=== PATIENT | female | born 1950 | race Caucasian/White ===

== ENCOUNTER 2024-01-17 11:50 | Inpatient (IN) | payer MEDICARE, OTHER, SELFPAY ==
[2024-01-17] VITALS (7 sets, daily range): BP systolic 152–174; BP diastolic 59–78; PULSE 69–81; RESP 15–22; TEMP 35.5–37; O2SAT 95–97; BMI 28.4; BMI 29.4
--- NOTE | ~2024-01-17 | CT_ITS ---
EXAMINATION: CT HEAD WITHOUT CONTRAST CLINICAL INFORMATION: Confusion COMPARISON: Previous head CT most recent July 2018 TECHNIQUE: Contiguous axial imaging was performed from the skull base to vertex without intravenous administration of contrast. This CT examination was performed using dose optimization techniques as appropriate, variously including the following: *Automated exposure control *Adjustment of mA and/or kV according to patient size (this includes techniques or standardized protocols for targeted exams where dose is matched to indication/reason for exam; i.e. extremities or head) *Use of iterative reconstruction technique DLP: 642 mGy-cm FINDINGS: There is no evidence for an extra-axial collection. There is no evidence for intra-or extra-axial hemorrhage. The ventricles and extra-axial CSF spaces are appropriate. Bradshaw-white matter differentiation is normal. No mass, mass effect or infarct is seen. Review of bone windows is normal. No skull fracture. Visualized paranasal sinuses, mastoid air cells and middle ears are clear. 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 CT/CT head/brain wo IV con IMPRESSION: No acute intracranial findings.
--- NOTE | 2024-01-17 11:57 | ED_ITS ---
HPI - Altered Mental Status General Chief Complaint: Neuro Symptoms/Deficit Stated Complaint: Confusion Time Seen by Provider: 01/17/24 12:13 Source: patient and family Mode of arrival: ambulatory Limitations: no limitations History of Present Illness HPI narrative: 73 yo female with history of HTN, HLD, neuropathy on high dose gabapentin and baclofen, anxiety on klonopin who presents to the ER for evaluation of worsening confusion that started yesterday at noon. History obtained from patient and due to her confusion. They just drove to [place], [place] and back for a wedding, returning home on the evening of 01/14. Patient was at her baseline mental status then. She slept until noon on 01/15 which her thought was due to all of the traveling and driving. She was confused and was talking nonsense intermittently yesterday. She went to bed early at 7pm last night and woke up today at 9am even more confused. She tried to put her shirt on as pants. She was looking at toothpaste on her finger and kept repeating reindeer. She states she feels crazy and is tearful upon arrival. reports history of serotonin syndrome in the past and one of her medications was adjusted but not sure which one. No new meds for her. She has a history of similar behavior with oxycodone. She manages all of her own medications and he reports her med box was inconsistent when he looked at it today; some days had 10 pills, some with 4 or 5. No fevers at home. No chest pain, SOB, N/V/D. She had decreased PO intake during the drives but otherwise has been urinating normally without any pain. MD complaint: confusion Onset (ago): day(s) Timing confirmed by: family member Severity: severe Consistency of symptoms: getting Worse Context: history of similar presentation Related Data Home Medications ?Medication ?Instructions ?Recorded ?Confirmed acetaminophen 500 mg tablet 1,000 mg PO Q6H PRN Pain 01/17/24 01/17/24 albuterol sulfate 90 mcg/actuation 2 puff inhalation Q4H PRN 01/17/24 01/17/24 aerosol inhaler Shortness Of Breath Or Wheezing baclofen 5 mg tablet 10 mg PO BEDTIME 01/17/24 01/17/24 budesonide-formoterol HFA 160 2 puff inhalation BID PRN 01/17/24 01/17/24 mcg-4.5 mcg/actuation aerosol Shortness Of Breath Or Wheezing inhaler (Symbicort) clonazepam 1 mg tablet 1 mg PO TID PRN anxiety 01/17/24 01/17/24 cyanocobalamin (vitamin B-12) 1,000 mcg IM QMONTH 01/17/24 01/17/24 1,000 mcg/mL injection solution denosumab 60 mg/mL subcutaneous 60 mg subcut [id number] 01/17/24 01/17/24 syringe (Prolia) desvenlafaxine succinate 50 mg 50 mg PO DAILY 01/17/24 01/17/24 tablet,extended release 24 hr dextromethorphan HBr 15 mg tablet 30 mg PO Q8H PRN Cough 01/17/24 01/17/24 gabapentin 800 mg tablet 800 mg PO TID 01/17/24 01/17/24 lisinopril 10 mg tablet 10 mg PO DAILY 01/17/24 01/17/24 [id number] 8 mg-folic 400 1 tab PO DAILY 01/17/24 01/17/24 mcg-K 50 mcg-lutein 300 mcg tablet (Centrum Silver Women) omeprazole 20 mg capsule,delayed 20 mg PO BID 01/17/24 01/17/24 release propranolol 60 mg capsule,24 60 mg PO DAILY 01/17/24 01/17/24 hr,extended release riboflavin (vitamin B2) 400 mg 400 mg PO DAILY 01/17/24 01/17/24 tablet rosuvastatin 5 mg tablet 5 mg PO DAILY 01/17/24 01/17/24 verapamil 240 mg tablet,extended 240 mg PO DAILY 01/17/24 01/17/24 release Allergies Allergy/AdvReac Type Severity Reaction Status Date / Time aripiprazole [From ABILIFY] Allergy Unknown SHAKE Verified 01/17/24 12:02 atorvastatin [ATORVASTATIN] Allergy Unknown UNKNOWN-PT Verified 01/17/24 12:02 ONLY [employer]LE [employer],NO OTHER STATIN divalproex sodium Allergy Unknown DELIRIUM Verified 01/17/24 12:02 [From DEPAKOTE] morphine [MORPHINE] Allergy Unknown ITCHING Verified 01/17/24 12:02 oxycodone [OXYCODONE] Allergy Unknown DELIRIUM Verified 01/17/24 12:02 pregabalin [From LYRICA] Allergy Unknown SWELLING Verified 01/17/24 12:02 quetiapine [From SEROQUEL] Allergy Unknown DELIRIUM Verified 01/17/24 12:02 lithium [LITHIUM] AdvReac 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 Review of Systems 2 Review of Systems: Yes all other systems are reviewed and are negative [facility] [place] Past Medical History Medical History (Updated 01/17/24 @ 17:58 by Valentino Cline MD) Neuropathy HLD (hyperlipidemia) HTN (hypertension) Social History Social History Patient Tobacco Use Status: Never used Tobacco Smoked in Last 30 Days: No Use of substances other than those prescribed or required for medical reasons: No Advance Directives: No Advance Directives Information Provided: No Do you have a plan to hurt others: No Plan Nutrition Risks: No Nutritional Risk Physical Exam ED Vital Signs: Vital Signs - 24 hr 01/17/24 11:57 01/17/24 12:14 01/17/24 14:19 Temperature 97.3 F 98.0 F 98.6 F Pulse Rate 69 70 76 Respiratory Rate 18 15 16 Blood Pressure 152/63 H 155/78 H 174/78 H Pulse Oximetry 96 96 97 Oxygen Delivery Method Room Air Room Air Room Air 01/17/24 15:27 Temperature 97.7 F Pulse Rate 80 Respiratory Rate 22 H Blood Pressure 167/59 H Pulse Oximetry 95 Oxygen Delivery Method Room Air BMI result Body Mass Index 28.4 Appearance: Alert. Oriented X2 (person and place). tearful Head: normocephalic, atraumatic. Eyes: Pupils equal, round and reactive to light. ENT: Pharynx normal. No tonsillar swelling or exudate. Neck: Normal inspection. Neck supple. CVS: Normal heart rate and rhythm. Pulses normal. Respiratory: No respiratory distress. Breath sounds normal. Abdomen: Soft and nontender. +BS x4 Skin: Skin warm and dry. Normal skin color. Normal skin turgor. No rashes. Extremities: No lower extremity edema. No joint swelling. Tremor to bilateral hands (baseline but slightly worse) +asterixis. no clonus Neuro/psych: Oriented X 2. No motor deficit. No sensory deficit. CN II-XII intact. Normal speech, confused. able to follow commands and answer most simple questions. poor memory Course Course Course Narrative: This is an RME performed by Kathy Heller CNP: Additional HPI, ROS, PE not included below will be deferred to primary provider. Patient is a 73-year-old female who presents to the emergency department for evaluation of confusion. recently has traveled 6,000miles by car over past 10 days, got home 2 days. yesterday upon awakening was confused, staring at her fingers saying reindeer reindeer reindeer, and today on the toilet for 45 minutes putting on her pants. Patient reports pain in her left foot, states this is chronic. Denies CP, SOB, sx, recent falls Physical exam: patient having difficulty following commands to perform NIH stroke scale, LSCTA, no resp distress, ambulates with steady gait Reevaluation(s) Reevaluation #1: Upon re-evaluation patient remains confused. Urinalysis is pending. CT scan metabolic workup so far largely unremarkable aside for some mild hypernatremia. Time: 15:30 Medications Administered Generic Name Dose Route Start Last Admin Trade Name Freq PRN Reason Stop Dose Admin Enoxaparin Sodium 40 mg 01/17/24 18:00 01/17/24 18:06 Enoxaparin Sodium 40 Mg/0.4 Ml Syringe SUBCUT 40 mg Q24H YASIR Administration Ceftriaxone Sodium 1 gm/ 50 mls @ 100 mls/hr 01/17/24 18:00 01/17/24 18:45 Sodium Chloride IV Infused Q24H YASIR Infusion Lactated Ringer's 1,000 mls @ 100 mls/hr 01/17/24 17:00 01/17/24 18:45 Lr IVCONT 100 mls/hr .Q10H YASIR Infusion Propranolol HCl 60 mg 01/17/24 18:00 01/17/24 18:05 Propranolol Hcl La 60 Mg Cap.Sa.24h PO 60 mg DAILY YASIR Administration Discontinued Medications Generic Name Dose Route Start Last Admin Trade Name Freq PRN Reason Stop Dose Admin Sodium Chloride 1,000 mls @ 999 mls/hr 01/17/24 12:45 01/17/24 14:04 Ns IVCONT 01/17/24 13:45 Infused .Q1H1M YASIR Infusion Medical Decision Making Medical Decision Making MDM Narrative: 73 yo female presenting with confusion that started yesterday after returning from a long car trip. reports inconsistencies w/ her med box and concern she may have taken too much of something. she is on high dose gabapentin 800 mg TID and baclofen. She is afebrile, no rigidity or clonus. History of serotonin syndrome in the past that presented w/ severe agitation, fever, rigidity. EKG with normal intervals. CT head and lab workup performed which was largely unremarkable. on re-evaluation patient remains confused. Difficulty articulating anything about the trip where she just went. She is oriented to person and place. reports she is still very far off from her mental status baseline. Most likely etiology is accidental ingestion/polypharmacy. Her urinalysis is negative for infection there is no major metabolic derangement aside from some mild hypernatremia which will not cause her symptoms. Will plan to admit to the hospital for further evaluation and treatment. Patient and updated on plan of care and are in agreement. Differential Diagnosis Differential Diagnoses: The differential diagnosis associated with the presentation includes acute delirium, accidental medication overdose/toxicity, CVA, UTI, serotonin syndrome Admission/Observation Consideration of admission/observation: Escalation of care including admission/observation considered Consult Healthcare Provider Management of the patient was discussed with: Hospitalist Lab Data MDM Lab Attestation statement: I reviewed the patient's lab results. no leukocytosis. mild hyperchloremic hyerpnatremia, mildly elevated BUN 01/17/24 12:40 01/17/24 12:40 Labs: Lab Results 01/17/24 01/17/24 01/17/24 Range/Units 12:40 12:44 12:47 WBC 8.3 (4.8-10.8) X10*3/uL RBC 3.80 L (4.20-5.50) X10*6/uL Hgb 12.4 (12.0-16.0) g/dl Hct 38.1 (37.0-47.0) % MCV 100.3 H (80.0-98.0) fL MCH 32.6 (27.0-33.0) pg MCHC 32.5 (31.0-35.0) g/dl RDW 13.9 (11.0-16.0) % Plt Count 292 (160-400) X10*3/uL MPV 9.6 (9.4-12.3) fL Immature Gran % (Auto) 0.4 (0.0-0.4) % Neut % (Auto) 68.0 (45-73) % Lymph % (Auto) 18.1 L (20-40) % Clinch % (Auto) 11.0 (2-11) % Eos % (Auto) 1.8 (0-4) % Baso % (Auto) 0.7 (0-2) % Lymph # (Auto) 1.5 (1.2-4.9) X10*3/uL Clinch # (Auto) 0.9 (0.1-1.2) X10*3/uL Eos # (Auto) 0.2 (0.0-0.4) X10*3/uL Baso # (Auto) 0.1 (0.0-0.2) X10*3/uL Abs Immat Gran (auto) 0.03 (0.00-0.03) X10*3/uL Absolute Neuts (auto) 5.7 (2.0-8.3) x10*3/uL Absolute Nucleated RBC 0.000 (0.0-0.012) X10*3/uL Nucleated RBC % (auto) 0.0 (0.0-0.2) /100WBC PT 12.0 (11.1-13.3) SEC INR 1.0 (0.9-1.1) VBG pH 7.35 (7.32-7.43) VBG pCO2 50 mmHg VBG pO2 34 mmHg VBG HCO3 28 H (22-26) mmol/L VBG O2 Saturation 52.0 % VBG Base Excess 2.6 mmol/L Sodium 147 H (135-145) mmol/L Potassium 4.3 (3.3-5.1) mmol/L Chloride 109 H (96-108) mmol/L Carbon Dioxide 24 (22-29) mmol/L Anion Gap 18 (12-20) BUN 20 H (9-16) mg/dL Creatinine 1.37 (0.5-1.4) mg/dL Estim Creat Clear Calc 38.9 Estimated GFR 38 Random Glucose 101 (60-115) mg/dL Calcium 10.7 H (8.4-10.2) mg/dL Total Bilirubin 0.4 (0.0-1.0) mg/dL AST 26 (5-31) U/L ALT 24 (0-31) U/L Alkaline Phosphatase 60 (39-117) U/L Ammonia 20 (13-55) umol/L Total Protein 7.4 (6.5-8.0) g/dL Albumin 4.5 (3.5-5.0) g/dL TSH 0.88 (0.32-4.0) uIU/mL Urine Color Urine Appearance Urine pH (5.0-9.0) Ur Specific [place] (1.005-1.025) Urine Protein (Neg-Trace) mg/dL Urine Glucose (UA) (Negative) mg/dL Urine Ketones (Negative) mg/dL Urine Blood (Negative) Urine Nitrite (Negative) Ur Leukocyte Esterase (Negative) Urine RBC (0-2) /HPF Urine WBC (0-5) /HPF Ur Squamous Epith Cells (0-2) /HPF Urine Bacteria (None Seen) Hyaline Casts (0-2) /LPF Salicylates < 5.0 L (15-30) mg/dL Urine Opiates Screen (Not Detect) Ur Buprenorphine Scrn (Not Detect) ng/mL Ur Oxycodone Screen (Not Detect) ng/mL Urine Methadone Screen (Not Detect) ng/mL Urine Fentanyl Screen (Not Detect) Acetaminophen < 3 (<30) mcg/mL Ur Barbiturates Screen (Not Detect) Ur Phencyclidine Scrn (Not Detect) Ur Amphetamines Screen (Not Detect) U Benzodiazepines Scrn (Not Detect) Urine Cocaine Screen (Not Detect) U Marijuana (THC) Screen (Not Detect) 01/17/24 Range/Units 15:28 WBC (4.8-10.8) X10*3/uL RBC (4.20-5.50) X10*6/uL Hgb (12.0-16.0) g/dl Hct (37.0-47.0) % MCV (80.0-98.0) fL MCH (27.0-33.0) pg MCHC (31.0-35.0) g/dl RDW (11.0-16.0) % Plt Count (160-400) X10*3/uL MPV (9.4-12.3) fL Immature Gran % (Auto) (0.0-0.4) % Neut % (Auto) (45-73) % Lymph % (Auto) (20-40) % Clinch % (Auto) (2-11) % Eos % (Auto) (0-4) % Baso % (Auto) (0-2) % Lymph # (Auto) (1.2-4.9) X10*3/uL Clinch # (Auto) (0.1-1.2) X10*3/uL Eos # (Auto) (0.0-0.4) X10*3/uL Baso # (Auto) (0.0-0.2) X10*3/uL Abs Immat Gran (auto) (0.00-0.03) X10*3/uL Absolute Neuts (auto) (2.0-8.3) x10*3/uL Absolute Nucleated RBC (0.0-0.012) X10*3/uL Nucleated RBC % (auto) (0.0-0.2) /100WBC PT (11.1-13.3) SEC INR (0.9-1.1) VBG pH (7.32-7.43) VBG pCO2 mmHg VBG pO2 mmHg VBG HCO3 (22-26) mmol/L VBG O2 Saturation % VBG Base Excess mmol/L Sodium (135-145) mmol/L Potassium (3.3-5.1) mmol/L Chloride (96-108) mmol/L Carbon Dioxide (22-29) mmol/L Anion Gap (12-20) BUN (9-16) mg/dL Creatinine (0.5-1.4) mg/dL Estim Creat Clear Calc Estimated GFR Random Glucose (60-115) mg/dL Calcium (8.4-10.2) mg/dL Total Bilirubin (0.0-1.0) mg/dL AST (5-31) U/L ALT (0-31) U/L Alkaline Phosphatase (39-117) U/L Ammonia (13-55) umol/L Total Protein (6.5-8.0) g/dL Albumin (3.5-5.0) g/dL TSH (0.32-4.0) uIU/mL Urine Color Yellow Urine Appearance Cloudy Urine pH 5.5 (5.0-9.0) Ur Specific [place] 1.015 (1.005-1.025) Urine Protein Negative (Neg-Trace) mg/dL Urine Glucose (UA) Negative (Negative) mg/dL Urine Ketones Negative (Negative) mg/dL Urine Blood Negative (Negative) Urine Nitrite Negative (Negative) Ur Leukocyte Esterase Trace H (Negative) Urine RBC 0-2 (0-2) /HPF Urine WBC 6-10 H (0-5) /HPF Ur Squamous Epith Cells >20 (0-2) /HPF Urine Bacteria 4+ (None Seen) Hyaline Casts 0-2 (0-2) /LPF Salicylates (15-30) mg/dL Urine Opiates Screen Not Detected (Not Detect) Ur Buprenorphine Scrn Not Detected (Not Detect) ng/mL Ur Oxycodone Screen Not Detected (Not Detect) ng/mL Urine Methadone Screen Not Detected (Not Detect) ng/mL Urine Fentanyl Screen Not Detected (Not Detect) Acetaminophen (<30) mcg/mL Ur Barbiturates Screen Not Detected (Not Detect) Ur Phencyclidine Scrn Not Detected (Not Detect) Ur Amphetamines Screen Not Detected (Not Detect) U Benzodiazepines Scrn POSITIVE H (Not Detect) Urine Cocaine Screen Not Detected (Not Detect) U Marijuana (THC) Screen Not Detected (Not Detect) Independent Interpretation I performed an independent interpretation of an: EKG and CT Scan Interpretation: EKG with normal sinus rhythm, normal ID interval, normal QRS, normal QTC, no ST segment elevations depressions, artifact present. CT scan without any acute intracranial edema or bleed. Radiology Impression Discussion of test interpretation with radiology: I have reviewed the radiologist's reading. Radiologist Impression: EXAMINATION: CT HEAD WITHOUT CONTRAST CLINICAL INFORMATION: Confusion COMPARISON: Previous head CT most recent July 2018 TECHNIQUE: Contiguous axial imaging was performed from the skull base to vertex without intravenous administration of contrast. This CT examination was performed using dose optimization techniques as appropriate, variously including the following: *Automated exposure control *Adjustment of mA and/or kV according to patient size (this includes techniques or standardized protocols for targeted exams where dose is matched to indication/reason for exam; i.e. extremities or head) *Use of iterative reconstruction technique DLP: 642 mGy-cm FINDINGS: There is no evidence for an extra-axial collection. There is no evidence for intra-or extra-axial hemorrhage. The ventricles and extra-axial CSF spaces are appropriate. Bradshaw-white matter differentiation is normal. No mass, mass effect or infarct is seen. Review of bone windows is normal. No skull fracture. Visualized paranasal sinuses, mastoid air cells and middle ears are clear. 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 CT/CT head/brain wo IV con IMPRESSION: No acute intracranial findings. Independent Historian Clinical information obtained from an independent historian. History obtained from or confirmed by: Spouse External Record Review External record reviewed: Outpatient record and Prior outpatient labs Prescription Management I considered prescription management with: Other (benzo) Chronic Conditions Patient?s care impacted by: Hypertension Critical Care Time Critical Care Time Critical Care Time: Yes Total Critical Care Time: 46 Attestation: I have personally provided critical care time exclusive of time spent on separately billable procedures. Time includes review of lab data, radiology results, discussion with consultants, and monitoring for potential decompensation. Intervention performed as documented. Discharge Plan Discharge Clinical Impression: Delirium, Polypharmacy Patient Disposition: Admitted As Inpatient
--- NOTE | 2024-01-17 12:13 | ECG_ITS ---
Test Reason : R/O STROKE Blood Pressure : / mmHG Vent. Rate : 073 BPM Atrial Rate : 073 BPM P-R Int : 148 ms QRS Dur : 092 ms QT Int : 406 ms P-R-T Axes : 063 060 033 degrees QTc Int : 447 ms artifact Normal sinus rhythm Normal ECG When compared with ECG of 16-JAN-2020 08:35, No significant change was found Referred By: Kiersten Rothman Electronically Signed By:Lopez Sanchez
[2024-01-17] MEDS: 0.9 % Sodium Chloride 1,000 ML 999 ML IVCONT (12:48)
[2024-01-17 12:50] LABS: MANUAL DIFF FLAG NO
[2024-01-17 12:52] LABS: Venous Blood Gas Refer to POC result
[2024-01-17 12:52] LABS: Basophils Absolute Auto 0.1 X10*3/uL (0.0-0.2); Basophils Percent Auto 0.7 % (0-2); Eosinophils Absolute Auto 0.2 X10*3/uL (0.0-0.4); Eosinophils Percent Auto 1.8 % (0-4); Hematocrit 38.1 % (37.0-47.0); Hemoglobin 12.4 g/dl (12.0-16.0); Imm Gran Abs Auto 0.03 X10*3/uL (0.00-0.03); Imm Gran Pct Auto 0.4 % (0.0-0.4); Lymphocytes Absolute Auto 1.5 X10*3/uL (1.2-4.9); Lymphocytes Percent Auto 18.1 % (20-40); Mean Corpuscular HGB Conc 32.5 g/dl (31.0-35.0); Mean Corpuscular Hemoglobin 32.6 pg (27.0-33.0); Mean Corpuscular Volume 100.3 fL (80.0-98.0); Mean Platelet Volume 9.6 fL (9.4-12.3); Monocytes Absolute Auto 0.9 X10*3/uL (0.1-1.2); Neutrophils Absolute Auto 5.7 x10*3/uL (2.0-8.3); Platelet Count 292 X10*3/uL (160-400); Red Cell Distribution Width 13.9 % (11.0-16.0); White Blood Count 8.3 X10*3/uL (4.8-10.8)
[2024-01-17 12:54] LABS: VBG Base Excess 2.6 mmol/L; VBG HCO3 28 mmol/L (22-26); VBG pCO2 50 mmHg; VBG pH 7.35 (7.32-7.43); VBG pO2 34 mmHg
[2024-01-17 13:03] LABS: Ammonia 20 umol/L (13-55)
[2024-01-17 13:12] LABS: Alanine Aminotransferase 24 U/L (0-31); Albumin Level 4.5 g/dL (3.5-5.0); Alkaline Phosphatase 60 U/L (39-117); Anion Gap 18 (12-20); Aspartate Amino Transferase 26 U/L (5-31); Bilirubin Total 0.4 mg/dL (0.0-1.0); Blood Urea Nitrogen 20 mg/dL (9-16); Calcium 10.7 mg/dL (8.4-10.2); Carbon Dioxide 24 mmol/L (22-29); Chloride 109 mmol/L (96-108); Creatinine Clr Calc Pharmacy 38.9; Estimated Glomerular Filt Rate 38; Glucose Random 101 mg/dL (60-115); Potassium 4.3 mmol/L (3.3-5.1); Sodium 147 mmol/L (135-145); Total Protein 7.4 g/dL (6.5-8.0)
[2024-01-17 13:15] LABS: Acetaminophen LAB < 3 mcg/mL (<30); Salicylate < 5.0 mg/dL (15-30)
[2024-01-17 13:31] LABS: TSH reflex Free T4 0.88 uIU/mL (0.32-4.0)
[2024-01-17 15:50] LABS: Appearance Urine Cloudy; Color Urine Yellow; Glucose Urine UA Negative (Negative); Leukocyte Esterase Urine Trace (Negative); Nitrite Urine Negative (Negative); PH 5.5 (5.0-9.0); Specific Gravity - Urine 1.015 (1.005-1.025); UMIC TRIGGER UACC YES; Urine Blood Negative (Negative); Urine Ketones Negative (Negative); Urine Protein Negative (Neg-Trace)
[2024-01-17 16:01] LABS: Amphetamine Screen Urine Not Detected (Not Detect); Barbiturates, Urine Not Detected (Not Detect); Benzodiazepines Screen Urine POSITIVE (Not Detect); Buprenorphine Scr Not Detected (Not Detect); Cannabinoid Screen Urine Not Detected (Not Detect); Cocaine Screen Urine Not Detected (Not Detect); Fentanyl, urine Not Detected (Not Detect); Methadone Screen, Urine Not Detected (Not Detect); Opiate Screen Urine Not Detected (Not Detect); Oxycodone Screen Urine Not Detected (Not Detect); Phencyclidine Screen Urine Not Detected (Not Detect)
[2024-01-17 16:24] LABS: Bacteria Urine 4+ (None Seen); Hyaline Casts Urine 0-2 /LPF (0-2); Squamous Epithelial Cell Urine >20 /HPF (0-2); UACC Culture Trigger YES
[2024-01-17 16:38] LABS: RBC Urine 0-2 /HPF (0-2)
--- NOTE | 2024-01-17 17:08 | P.HPHOSP_ITS ---
History of Present Illness Date of Service: 01/17/24 Chief Complaint: Confusion A 73 years old lady with PMH of Depression, anxiety, HTN, GERD, neuropathy who presents to the hospital with 2 days of worsening confusion. The patient was in a long road trip with her for over 6000 miles for a wedding in [place] and came back home on Thursday when the patient was at her baseline mentation. Thursday morning the noticed that she is not acting normal and confusing words and events. She went to bed early as they thought she is tired from travelling. she woke up this morning more confused mixing her shirts and pants and repeating some words with no goal. The patient herself feels confused and was stressed and tearful in the interview. She denies any recent changes in her medications. Denies No chest pain, palpitations, SOB, nausea, vomiting, diarrhea or urinary symptoms. No skin rash , tick bites or viral symptoms. She manages her medicaitons at home and her noticed that her medication box is arranged in a wrong way were somedays has 5 tabs while other has 10. Urine showing WBCs and Bacteria. No symptoms though. rest of work up negative for infection. CT head negative for any acute events. Na of 147 on presentation. Admited for observation. Review of Systems 2 Review of Systems: No fever, chills but some weakness and confusion No chest pain, palpitation No shortness of breath or coughing No abdominal pain, nausea or vomiting No urinary symptoms No any rash or wounds [facility] Medical History (Updated 01/17/24 @ 17:58 by Valentino Cline MD) Neuropathy HLD (hyperlipidemia) HTN (hypertension) Social History Smoked in Last 30 Days: No Use of substances other than those prescribed or required for medical reasons: No Advance Directives: No Advance Directives Information Provided: No Do you have a plan to hurt others: No Plan Meds Allergies Allergy/AdvReac Type Severity Reaction Status Date / Time aripiprazole [From ABILIFY] Allergy Unknown SHAKE Verified 01/17/24 12:02 atorvastatin [ATORVASTATIN] Allergy Unknown UNKNOWN-PT Verified 01/17/24 12:02 ONLY ABLE [employer],NO OTHER STATIN divalproex sodium Allergy Unknown DELIRIUM Verified 01/17/24 12:02 [From DEPAKOTE] morphine [MORPHINE] Allergy Unknown ITCHING Verified 01/17/24 12:02 oxycodone [OXYCODONE] Allergy Unknown DELIRIUM Verified 01/17/24 12:02 pregabalin [From LYRICA] Allergy Unknown SWELLING Verified 01/17/24 12:02 quetiapine [From SEROQUEL] Allergy Unknown DELIRIUM Verified 01/17/24 12:02 lithium [LITHIUM] AdvReac 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 Medications: Current Medications Ceftriaxone Sodium 1 gm/ (Sodium Chloride) 50 mls @ 100 mls/hr IV Q24H YASIR Home Medications ?Medication ?Instructions ?Recorded ?Confirmed ?Last Taken ?Type acetaminophen 500 mg tablet 1,000 mg PO Q6H PRN Pain 01/17/24 01/17/24 Unknown History albuterol sulfate 90 mcg/actuation 2 puff inhalation Q4H 01/17/24 Unknown History aerosol inhaler baclofen 5 mg tablet 7.5 - 10 mg PO BEDTIME 01/17/24 Unknown History budesonide-formoterol HFA 160 2 puff inhalation BID PRN 01/17/24 01/17/24 Unknown History mcg-4.5 mcg/actuation aerosol Shortness Of Breath Or Wheezing inhaler (Symbicort) clonazepam 1 mg tablet 1 mg PO TID PRN anxiety 01/17/24 Unknown History cyanocobalamin (vitamin B-12) 1,000 mcg IM QMONTH 01/17/24 Unknown History 1,000 mcg/mL injection solution denosumab 60 mg/mL subcutaneous 60 mg subcut [id number] 01/17/24 Unknown History syringe (Prolia) desvenlafaxine succinate 50 mg 50 mg PO DAILY 01/17/24 Unknown History tablet,extended release 24 hr dextromethorphan HBr 15 mg tablet 30 mg PO Q8H PRN Cough 01/17/24 01/17/24 Unknown History gabapentin 800 mg tablet 800 mg PO TID 01/17/24 Unknown History lisinopril 10 mg tablet 10 mg PO DAILY 01/17/24 Unknown History pmpbobvy-lwkq-kxdt 8 mg-folic 400 1 tab PO DAILY 01/17/24 01/17/24 01/16/24 History mcg-K 50 mcg-lutein 300 mcg tablet (Centrum Silver Women) omeprazole 20 mg capsule,delayed 20 mg PO BID 01/17/24 Unknown History release propranolol 60 mg capsule,24 60 mg PO DAILY 01/17/24 Unknown History hr,extended release riboflavin (vitamin B2) 400 mg 400 mg PO DAILY 01/17/24 01/17/24 01/16/24 History tablet rosuvastatin 5 mg tablet 5 mg PO DAILY 01/17/24 Unknown History verapamil 240 mg tablet,extended 240 mg PO DAILY 01/17/24 Unknown History release Physical Exam 2 Vital Signs and Narrative: Vital Signs: Last Vital Signs Temp 97.7 F 01/17/24 15:27 Pulse 80 01/17/24 15:27 Resp 22 H 01/17/24 15:27 BP 167/59 H 01/17/24 15:27 Pulse Ox 95 01/17/24 15:27 O2 Del Method Room Air 01/17/24 15:27 BMI result Body Mass Index 28.4 Const: Other: Constitutional : Awake, interactive, in distress and teary Neck : Normal inspection, Supple Cardiovascular : RRR, no JVP, no lower extremity edema Respiratory : good bilateral air entry, no crackles Gastrointestinal: soft, lax, Normal bowel sounds, Non tender Skin : Warm, Dry Neurological : Alert & oriented to self, gets confused easily, No focal deficit Results Labs 01/17/24 12:40 01/17/24 12:40 Labs: Laboratory Results - last 24 hr 01/17/24 01/17/24 01/17/24 12:40 12:44 12:47 MCV 100.3 H MCH 32.6 MCHC 32.5 RDW 13.9 Plt Count 292 MPV 9.6 Immature Gran % (Auto) 0.4 Neut % (Auto) 68.0 Lymph % (Auto) 18.1 L [place] % (Auto) 11.0 Eos % (Auto) 1.8 Baso % (Auto) 0.7 Lymph # (Auto) 1.5 [place] # (Auto) 0.9 Eos # (Auto) 0.2 Baso # (Auto) 0.1 Abs Immat Gran (auto) 0.03 Absolute Neuts (auto) 5.7 Absolute Nucleated RBC 0.000 Nucleated RBC % (auto) 0.0 PT 12.0 INR 1.0 VBG pH 7.35 VBG pCO2 50 VBG pO2 34 VBG HCO3 28 H VBG O2 Saturation 52.0 VBG Base Excess 2.6 Anion Gap 18 Estim Creat Clear Calc 38.9 Estimated GFR 38 Random Glucose 101 Calcium 10.7 H Total Bilirubin 0.4 AST 26 ALT 24 Alkaline Phosphatase 60 Ammonia 20 Total Protein 7.4 Albumin 4.5 TSH 0.88 Urine Color Urine Appearance Urine pH Ur Specific [place] Urine Protein Urine Glucose (UA) Urine Ketones Urine Blood Urine Nitrite Ur Leukocyte Esterase Urine RBC Urine WBC Ur Squamous Epith Cells Urine Bacteria Hyaline Casts Salicylates < 5.0 L Urine Opiates Screen Ur Buprenorphine Scrn Ur Oxycodone Screen Urine Methadone Screen Urine Fentanyl Screen Acetaminophen < 3 Ur Barbiturates Screen Ur Phencyclidine Scrn Ur Amphetamines Screen U Benzodiazepines Scrn Urine Cocaine Screen U Marijuana (THC) Screen 01/17/24 15:28 MCV MCH MCHC RDW Plt Count MPV Immature Gran % (Auto) Neut % (Auto) Lymph % (Auto) [place] % (Auto) Eos % (Auto) Baso % (Auto) Lymph # (Auto) [place] # (Auto) Eos # (Auto) Baso # (Auto) Abs Immat Gran (auto) Absolute Neuts (auto) Absolute Nucleated RBC Nucleated RBC % (auto) PT INR VBG pH VBG pCO2 VBG pO2 VBG HCO3 VBG O2 Saturation VBG Base Excess Anion Gap Estim Creat Clear Calc Estimated GFR Random Glucose Calcium Total Bilirubin AST ALT Alkaline Phosphatase Ammonia Total Protein Albumin TSH Urine Color Yellow Urine Appearance Cloudy Urine pH 5.5 Ur Specific [place] 1.015 Urine Protein Negative Urine Glucose (UA) Negative Urine Ketones Negative Urine Blood Negative Urine Nitrite Negative Ur Leukocyte Esterase Trace H Urine RBC 0-2 Urine WBC 6-10 H Ur Squamous Epith Cells >20 Urine Bacteria 4+ Hyaline Casts 0-2 Salicylates Urine Opiates Screen Not Detected Ur Buprenorphine Scrn Not Detected Ur Oxycodone Screen Not Detected Urine Methadone Screen Not Detected Urine Fentanyl Screen Not Detected Acetaminophen Ur Barbiturates Screen Not Detected Ur Phencyclidine Scrn Not Detected Ur Amphetamines Screen Not Detected U Benzodiazepines Scrn POSITIVE H Urine Cocaine Screen Not Detected U Marijuana (THC) Screen Not Detected Imaging Radiologist's Impressions: Impressions Head CT 01/17/24 13:44 IMPRESSION: No acute intracranial findings. Assessment and Plan (1) Toxic metabolic encephalopathy: Status: Acute (2) Acute hypernatremia: Status: Acute (3) UTI (urinary tract infection): Status: Acute Plan A 73 years old lady with PMH of Depression, anxiety, HTN, GERD, neuropathy who presents to the hospital with 2 days of worsening confusion. Toxic metabolic encephalopathy Likely result of urine infection, hypernatremia and Polypharmacy No symptoms to suggest Serotonin syndrome Treat infection Correct Sodium Hold sedating meds recurrent reorientation PT eval UTI Urine culture Ceftriaxone IV Hypernatremia Correct with IVF follow BMP Polypharmacy Hold Gabapentin, Baclofen and Clonazepam PRN doses if needed HTN Continue Propranolol and Verapamil GERD Omeprazole Quality Stroke Does the patient have a stroke diagnosis?: No VTE Prior VTE?: No VTE Risk Level:: Medical - moderate - high VTE Device Contraindication: Treatment Not Indicated VTE Drug Contraindication: N/A - Med Ordered
--- NOTE | 2024-01-17 17:18 | PHA.MEDREC ---
Pharmacy Consult ? Medication Reconciliation Pharmacy has completed the medication reconciliation. Pt stated that prolia next dose due 01/24/24 and next b12 injection due 01/19/24.
[2024-01-17] MEDS: Lactated Ringers 1,000 ML 100 ML IVCONT (17:43)
[2024-01-17] MEDS: cefTRIAXone sodium 1 GM in 0.9 % Sodium Chloride 50 ML IV (17:57)
--- NOTE | 2024-01-17 17:57 | PC.NURSE ---
LR paused for Ceftriaxone, no blood cultures needed per hospitalist
[2024-01-17] MEDS: Propranolol HCL LA 60 MG CAP.SA.24H PO (18:05)
[2024-01-17] MEDS: Enoxaparin Sodium 40 MG/0.4 ML SYRINGE SUBCUT (18:06)
--- NOTE | 2024-01-17 18:11 | MHC.EDTECH ---
Bed pad changed and pat repositioned
--- NOTE | 2024-01-17 18:20 | MHC.EDTECH ---
Patient given dinner tray
--- NOTE | 2024-01-17 18:34 | PC.NURSE ---
report given to Cristine in overflow, patient to go over once they are finished eating. fiber technician minh made aware.
[2024-01-18] VITALS (7 sets, daily range): BP systolic 150–173; BP diastolic 64–80; PULSE 74–83; RESP 16–20; TEMP 36.1–36.6; O2SAT 91–95
[2024-01-18] MEDS: Lactated Ringers 1,000 ML 100 ML IVCONT ×3 (04:07→19:37)
[2024-01-18 05:27] LABS: Parathyroid Hormone Intact 49.8 pg/mL (8.7-77.1)
[2024-01-18] MEDS: Omeprazole 20 MG CAPSULE.DR PO ×2 (05:46→16:08)
[2024-01-18 06:01] LABS: Anion Gap 16 (12-20); Blood Urea Nitrogen 16 mg/dL (9-16); Calcium 9.4 mg/dL (8.4-10.2); Carbon Dioxide 22 mmol/L (22-29); Chloride 111 mmol/L (96-108); Creatinine Clr Calc Pharmacy 46.4; Estimated Glomerular Filt Rate 45; Glucose Random 105 mg/dL (60-115); Sodium 145 mmol/L (135-145)
[2024-01-18] MEDS: ondansetron HCL 4 MG/2 ML VIAL IVPUSH ×2 (08:07→17:42)
[2024-01-18] MEDS: VerapamiL HCL SR 240 MG TABLET.ER PO (08:08)
[2024-01-18] MEDS: Propranolol HCL LA 60 MG CAP.SA.24H PO (08:08)
[2024-01-18] MEDS: Gabapentin 100 MG CAPSULE 200 MG PO ×2 (08:08→22:06)
--- NOTE | 2024-01-18 10:24 | MHC.CM.PN ---
pt morena with huisband is independet had no servuies has own ride home dc plan home no servies
--- NOTE | 2024-01-18 11:33 | P.PNIM_ITS ---
Subjective Subjective Date of Service: 01/18/24 Interval History: Seen and evaluated Mind much clearer reporting nausea and vomiting [place] dizzy upon standing and walking Pending cultures Review of Systems Review of Systems: Yes all other systems are reviewed and are negative Physical Exam 2 Vital Signs: Vital Signs: Last Vital Signs Temp 97.9 F 01/18/24 07:27 Pulse 77 01/18/24 10:52 Resp 16 01/18/24 07:27 BP 162/70 H 01/18/24 07:27 Pulse Ox 91 L 01/18/24 10:52 O2 Del Method Room Air 01/18/24 07:27 BMI result Body Mass Index 29.4 Const: Other: Constitutional : Awake, interactive, in distress and teary Neck : Normal inspection, Supple Cardiovascular : RRR, no JVP, no lower extremity edema Respiratory : good bilateral air entry, no crackles Gastrointestinal: soft, lax, Normal bowel sounds, Non tender Skin : Warm, Dry Neurological : Alert & orientedx3, No focal deficit Objective Data Active Medications Acetaminophen (Acetaminophen 325 Mg Tablet) 650 mg PO Q6H PRN PRN Reason: Pain, Mild (Pain Scale 1-3) Clonazepam (Clonazepam 0.5 Mg Tablet) 0.5 mg PO TID PRN PRN Reason: anxiety/restlessness Enoxaparin Sodium (Enoxaparin Sodium 40 Mg/0.4 Ml Syringe) 40 mg SUBCUT Q24H [facility] Last Admin: 01/17/24 18:06 Dose: 40 mg Documented By: ANDRES Gabapentin (Gabapentin 100 Mg Capsule) 200 mg PO BID [facility] Last Admin: 01/18/24 08:08 Dose: 200 mg Documented By: CLAIRE Ceftriaxone Sodium 1 gm/ (Sodium Chloride) 50 mls @ 100 mls/hr IV Q24H [facility] Last Infusion: 01/17/24 18:45 Dose: Infused Documented By: ERIS Lactated Ringer's (Lr) 1,000 mls @ 100 mls/hr IVCONT .Q10H [facility] Last Admin: 01/18/24 04:07 Dose: 100 mls/hr Documented By: KEVIN Omeprazole (Omeprazole 20 Mg Capsule.) 20 mg PO BID@0630,1630 [facility] Last Admin: 01/18/24 05:46 Dose: 20 mg Documented By: HO.ODRISM Ondansetron HCl (Ondansetron Hcl 4 Mg/2 Ml Vial) 4 mg IVPUSH Q8H PRN PRN Reason: Nausea and Vomiting Last Admin: 01/18/24 08:07 Dose: 4 mg Documented By: CLAIRE Propranolol HCl (Propranolol Hcl La 60 Mg Cap.Sa.24h) 60 mg PO DAILY [facility] Last Admin: 01/18/24 08:08 Dose: 60 mg Documented By: CLAIRE Sodium Chloride (0.9 % Sodium Chloride Flush 3 Ml Syringe) 3 ml IVFLUSH QSHIFT [facility] Last Admin: 01/18/24 08:10 Dose: Not Given Documented By: CLAIRE Non-Admin Reason: IV Running Verapamil HCl (Verapamil Hcl Sr 240 Mg Tablet.Er) 240 mg PO DAILY [facility]; Protocol Last Admin: 01/18/24 08:08 Dose: 240 mg Documented By: CLAIRE Labs 01/17/24 12:40 01/18/24 05:30 Labs: Laboratory Results - last 24 hr 01/17/24 01/17/24 01/17/24 12:40 12:44 12:47 MCV 100.3 H MCH 32.6 MCHC 32.5 RDW 13.9 Plt Count 292 MPV 9.6 Immature Gran % (Auto) 0.4 Neut % (Auto) 68.0 Lymph % (Auto) 18.1 L [place] % (Auto) 11.0 Eos % (Auto) 1.8 Baso % (Auto) 0.7 Lymph # (Auto) 1.5 [place] # (Auto) 0.9 Eos # (Auto) 0.2 Baso # (Auto) 0.1 Abs Immat Gran (auto) 0.03 Absolute Neuts (auto) 5.7 Absolute Nucleated RBC 0.000 Nucleated RBC % (auto) 0.0 PT 12.0 INR 1.0 VBG pH 7.35 VBG pCO2 50 VBG pO2 34 VBG HCO3 28 H VBG O2 Saturation 52.0 VBG Base Excess 2.6 Anion Gap 18 Estim Creat Clear Calc 38.9 Estimated GFR 38 Random Glucose 101 Calcium 10.7 H Total Bilirubin 0.4 AST 26 ALT 24 Alkaline Phosphatase 60 Ammonia 20 Total Protein 7.4 Albumin 4.5 TSH 0.88 PTH Intact 49.8 Urine Color Urine Appearance Urine pH Ur Specific [place] Urine Protein Urine Glucose (UA) Urine Ketones Urine Blood Urine Nitrite Ur Leukocyte Esterase Urine RBC Urine WBC Ur Squamous Epith Cells Urine Bacteria Hyaline Casts Salicylates < 5.0 L Urine Opiates Screen Ur Buprenorphine Scrn Ur Oxycodone Screen Urine Methadone Screen Urine Fentanyl Screen Acetaminophen < 3 Ur Barbiturates Screen Ur Phencyclidine Scrn Ur Amphetamines Screen U Benzodiazepines Scrn Urine Cocaine Screen U Marijuana (THC) Screen 01/17/24 01/18/24 15:28 05:30 MCV MCH MCHC RDW Plt Count MPV Immature Gran % (Auto) Neut % (Auto) Lymph % (Auto) [place] % (Auto) Eos % (Auto) Baso % (Auto) Lymph # (Auto) [place] # (Auto) Eos # (Auto) Baso # (Auto) Abs Immat Gran (auto) Absolute Neuts (auto) Absolute Nucleated RBC Nucleated RBC % (auto) PT INR VBG pH VBG pCO2 VBG pO2 VBG HCO3 VBG O2 Saturation VBG Base Excess Anion Gap 16 Estim Creat Clear Calc 46.4 Estimated GFR 45 Random Glucose 105 Calcium 9.4 D Total Bilirubin AST ALT Alkaline Phosphatase Ammonia Total Protein Albumin TSH PTH Intact Urine Color Yellow Urine Appearance Cloudy Urine pH 5.5 Ur Specific [place] 1.015 Urine Protein Negative Urine Glucose (UA) Negative Urine Ketones Negative Urine Blood Negative Urine Nitrite Negative Ur Leukocyte Esterase Trace H Urine RBC 0-2 Urine WBC 6-10 H Ur Squamous Epith Cells >20 Urine Bacteria 4+ Hyaline Casts 0-2 Salicylates Urine Opiates Screen Not Detected Ur Buprenorphine Scrn Not Detected Ur Oxycodone Screen Not Detected Urine Methadone Screen Not Detected Urine Fentanyl Screen Not Detected Acetaminophen Ur Barbiturates Screen Not Detected Ur Phencyclidine Scrn Not Detected Ur Amphetamines Screen Not Detected U Benzodiazepines Scrn POSITIVE H Urine Cocaine Screen Not Detected U Marijuana (THC) Screen Not Detected Microbiology Microbiology Results: Microbiology 01/17/24 15:28 Urine Culture - Final Urine clean catch - Urine muro top Assessment and Plan (1) Toxic metabolic encephalopathy: Status: Acute (2) Acute hypernatremia: Status: Acute (3) UTI (urinary tract infection): Status: Acute (4) Polypharmacy: Status: Acute Plan A 73 years old lady with PMH of Depression, anxiety, HTN, GERD, neuropathy who presents to the hospital with 2 days of worsening confusion. Toxic metabolic encephalopathy Likely result of urine infection, hypernatremia and Polypharmacy Improving Treat infection w Abx Sodium corrected Hold sedating meds recurrent reorientation PT eval UTI Urine culture Ceftriaxone IV Hypernatremia Correct with IVF follow BMP Polypharmacy Hold Gabapentin, Baclofen and Clonazepam PRN doses if needed and small dose Imani HTN Continue Propranolol and Verapamil GERD Omeprazole The patient will need overnight stay for Encephalopathy 2/2 UTI on IV Abx pending final cultures and PT evaluation. Quality Stroke Does the patient have a stroke diagnosis?: No VTE Prior VTE?: No VTE Risk Level:: Medical - moderate - high VTE Device Contraindication: Treatment Not Indicated VTE Drug Contraindication: N/A - Med Ordered
--- NOTE | 2024-01-18 11:53 | MHC.CM.PN ---
PHYSICAL HAS RECEOMMENDED OUTPT PHYSICAL THERAPY SERVIUES WHEN DCD
[2024-01-18] MEDS: clonazePAM 0.5 MG TABLET PO (12:31)
--- NOTE | 2024-01-18 15:11 | MHC.CM.PN ---
pt now inpt imm given to pt
[2024-01-18] MEDS: cefTRIAXone sodium 1 GM in 0.9 % Sodium Chloride 50 ML IV (17:38)
[2024-01-18] MEDS: Enoxaparin Sodium 40 MG/0.4 ML SYRINGE SUBCUT (17:40)
[2024-01-19] MEDS: Metoclopramide HCl 10 MG/2 ML VIAL 5 MG IVPUSH (00:04)
--- NOTE | 2024-01-19 00:09 | PC.NURSE ---
pt medicated earlier with zofran for N/V with no effect.Dr.Vali black reglan 5mg IV ordered x1.
[2024-01-19] MEDS: clonazePAM 0.5 MG TABLET PO (01:29)
[2024-01-19 03:36] VITALS: BP 142/66; PULSE 76; RESP 18; TEMP 36.2; O2SAT 94
[2024-01-19] MEDS: Omeprazole 20 MG CAPSULE.DR PO (05:42)
[2024-01-19] MEDS: Lactated Ringers 1,000 ML 100 ML IVCONT (05:44)
[2024-01-19 07:20] VITALS: BP 166/76; PULSE 81; RESP 17; TEMP 36.9; O2SAT 95
[2024-01-19 07:29] LABS: Anion Gap 17 (12-20); Blood Urea Nitrogen 11 mg/dL (9-16); C Reactive Protein 0.38 mg/dL (< or = 0.50); Calcium 9.4 mg/dL (8.4-10.2); Carbon Dioxide 23 mmol/L (22-29); Chloride 105 mmol/L (96-108); Creatinine Clr Calc Pharmacy 50.7; Estimated Glomerular Filt Rate 50; Glucose Random 98 mg/dL (60-115); Potassium 3.4 mmol/L (3.3-5.1); Sodium 142 mmol/L (135-145)
[2024-01-19] MEDS: Gabapentin 100 MG CAPSULE 200 MG PO (08:00)
[2024-01-19] MEDS: Propranolol HCL LA 60 MG CAP.SA.24H PO (08:00)
[2024-01-19] MEDS: VerapamiL HCL SR 240 MG TABLET.ER PO (08:00)
--- NOTE | 2024-01-19 11:24 | P.DS_ITS ---
DS: Providers Provider Date of Service: 01/19/24 Date of admission: 01/18/24 14:16 Primary care physician: Letty Thomas MD DS: Diagnosis Discharge Diagnosis (1) Toxic metabolic encephalopathy: Status: Acute (2) Acute hypernatremia: Status: Acute (3) UTI (urinary tract infection): Status: Acute (4) Polypharmacy: Status: Acute DS: Summary Hospital Course Hospital Course: Admission note A 73 years old lady with PMH of Depression, anxiety, HTN, GERD, neuropathy who presents to the hospital with 2 days of worsening confusion. The patient was in a long road trip with her for over 6000 miles for a wedding in [place] and came back home on Thursday when the patient was at her baseline mentation. Thursday morning the noticed that she is not acting normal and confusing words and events. She went to bed early as they thought she is tired from travelling. she woke up this morning more confused mixing her shirts and pants and repeating some words with no goal. The patient herself feels confused and was stressed and tearful in the interview. She denies any recent changes in her medications. Denies No chest pain, pal pitations, SOB, nausea, vomiting, diarrhea or urinary symptoms. No skin rash , tick bites or viral symptoms. She manages her medicaitons at home and her noticed that her medication box is arranged in a wrong way were somedays has 5 tabs while other has 10. Urine showing WBCs and Bacteria. No symptoms though. rest of work up negative for infection. CT head negative for any acute events. Na of 147 on presentation. Admited for observation. Hospital course Admitted for Toxic metabolic encephalopathy which seems to be a result of urine infection, hypernatremia and Polypharmacy. Improved back to baseline during hospital stay as we treat infection with Ceftriaxone IV for 2 days. Correcting sodium level to baseline and decreasing her sedating home medications and recurrent reorientation. Cultures grew mixed bacteria. restarted low dose Klonipin and Gabapentin with good tolerance. She was evaluated by physical therapy team who recommended using Roll-walker at home and follow up with PT as outpatient. Discharge Plan Use Walker at home Continue Ceftin as prescribed To do outpatient physical therapy Time Attestation Discharge Coordination Time (in mins): 36 Quality: Safe Use of Opioids Does Pt have an Active Cancer Diagnosis on the Problem List?: No Quality: Stroke Does the patient have a stroke diagnosis?: No Physical Exam Vital Signs: Vital Signs: Last Vital Signs Temp 98.5 F 01/19/24 07:20 Pulse 81 01/19/24 07:20 Resp 17 01/19/24 07:20 BP 166/76 H 01/19/24 07:20 Pulse Ox 95 01/19/24 07:20 O2 Del Method Room Air 01/19/24 07:20 BMI result Body Mass Index 29.4 Const: Other: Constitutional : Awake, interactive, in distress and teary Neck : Normal inspection, Supple Cardiovascular : RRR, no JVP, no lower extremity edema Respiratory : good bilateral air entry, no crackles Gastrointestinal: soft, lax, Normal bowel sounds, Non tender Skin : Warm, Dry Neurological : Alert & orientedx3, No focal deficit DS: Data Data Completed and Pending Labs on day of discharge: Laboratory Results - last 24 hr 01/19/24 05:58 Hold Purple Top SEE NOTE Sodium 142 Potassium 3.4 Chloride 105 Carbon Dioxide 23 Anion Gap 17 BUN 11 Creatinine 1.07 Estim Creat Clear Calc 50.7 Estimated GFR 50 Random Glucose 98 Calcium 9.4 C-Reactive Protein 0.38 Imaging Chest x-ray: Radiologist's impression: ITS Impressions Head CT 01/17/24 13:44 IMPRESSION: No acute intracranial findings. Discharge Plan Discharge Anticipated Discharge Date/Time: 01/19/24 11:15 Patient Disposition: Home, Self-Care Discharge Diagnosis: Urine infection Referrals: Physical Therapy - [facility] [Outside] - 1 Week (10 sessions of outpatient physical therapy. ) Letty Thomas MD [Primary Care Provider] - 1 Week Discharge Medications: New cefuroxime axetil 500 mg tablet 500 mg PO BID Qty: 6 0RF Continued propranolol 60 mg capsule,extended release 24 hr 60 mg PO DAILY clonazepam 1 mg tablet 1 mg PO TID PRN (Reason: anxiety) gabapentin 800 mg tablet 800 mg PO TID cyanocobalamin (vitamin B-12) 1,000 mcg/mL solution 1,000 mcg IM QMONTH Rx Instructions: PER PATIENT NEXT DOSE: 01/19/24 lisinopril 10 mg tablet 10 mg PO DAILY omeprazole 20 mg capsule,delayed release(DR/EC) 20 mg PO BID verapamil 240 mg tablet extended release 240 mg PO DAILY albuterol sulfate 90 mcg/actuation HFA aerosol inhaler 2 puff inhalation Q4H PRN (Reason: Shortness Of Breath Or Wheezing) rosuvastatin 5 mg tablet 5 mg PO DAILY desvenlafaxine succinate 50 mg tablet extended release 24 hr 50 mg PO DAILY Prolia 60 mg/mL syringe 60 mg subcut [id number] Rx Instructions: PER PATIENT NEXT DOSE: 01/24/24 baclofen 5 mg tablet 10 mg PO BEDTIME acetaminophen 500 mg Tablet 1,000 mg PO Q6H PRN (Reason: Pain) budesonide-formoterol [Symbicort] 160-4.5 mcg/actuation Hfa Aerosol Inhaler 2 puff INHALATION BID PRN (Reason: Shortness Of Breath Or Wheezing) Centrum Silver Women 8 mg iron-400 mcg-50 mcg Tablet 1 tab PO DAILY riboflavin (vitamin B2) 400 mg Tablet 400 mg PO DAILY dextromethorphan HBr 15 mg Tablet 30 mg PO Q8H PRN (Reason: Cough) Discharge Orders: Discharge Order (Routine); Ordered 01/19/24 Ordered By: Valentino Cline Diet: Advance to usual diet Activity on Discharge: As tolerated Stand Alone Forms: Patient Portal Discharge page Print Language: Khmer Care Plan Goals: Read below Health Concerns: Read below Plan of Treatment: Read below Assessment: Use Walker at home Continue Ceftin as prescribed To do outpatient physical therapy
[2024-01-19] MEDS: Gabapentin 400 MG CAPSULE PO (11:28)
--- NOTE | 2024-01-19 14:37 | P.CDIM_ITS ---
PROVIDER RESPONSE TEXT: To clarify, the appropriate diagnosis supported by the clinical indicators: Neuropathy: peripheral QUERY TEXT: PHYSICIAN'S DOCUMENTATION REQUEST Date of Query: 01/19/2024 09:50 AM EDT Patient Name: Marta Carranza Admit Date: 01/18/2024 Dear Valentino Cline, A review of the medical record indicates additional documentation may be needed. Please review below and update the documentation accordingly. Progress notes and H &P: Patient with a history of neuropathy on high dose Gabapentin and Baciofen. Based on the above, are there any specifics to the noted Neuropathy noted within this medical record: Neuropathy Peripheral, Autonomic, Idiopathic, Ischemic, Chronic etc. Other (explain) Clinically unable to determine (explain) Thank you, Lety Quintanilla, CCS, CDIS Use of terms such as suspected, likely, concern for, or probable (associated with a specific diagnosi s that is being evaluated, monitored, or treated as if it exists) are acceptable and can be coded in the inpatient se tting, when documented at the time of discharge. Please use your independent medical judgment in providing your response. THIS QUERY IS PART OF THE PERMANENT MEDICAL RECORD
== END 2024-01-19 11:58 | disposition home or self-care (01) | DRG 689 ==
LOC: HO.ED 15:31 → HO.EDOVER 17:13 → HO.S3 19:47
PROVIDERS: Physician Assistant; Admitting Provider Student in an Organized Health Care Education/Training Program; Emergency Provider Emergency Medicine; PCP Family Medicine; Visit Provider Student in an Organized Health Care Education/Training Program
DX: N39.0 Urinary tract infection, site not specified (principal); G92.8 Other toxic encephalopathy; E87.0 Hyperosmolality and hypernatremia; F05 Delirium due to known physiological condition; I10 Essential (primary) hypertension; E78.5 Hyperlipidemia, unspecified; G62.9 Polyneuropathy, unspecified; T50.995A Adverse effect of other drugs, medicaments and biological substances, initial encounter; K21.9 Gastro-esophageal reflux disease without esophagitis; Z79.899 Other long term (current) drug therapy
CPT/HCPCS: 36415; 70450; 80048; 80053; 80143; 80179; 80307; 81001; 81003; 82140; 82803; 83970; 84443; 85025; 85610; 86140; 87086; 93005; 97116; 97162; 97530; 99221; 99285; J0696; J1650; J2405; J2765; J7120

== ENCOUNTER → 2024-01-17 12:13 | Outpatient (BNV) | payer MEDICARE, OTHER, SELFPAY | PROVIDERS: Admitting Provider Student in an Organized Health Care Education/Training Program; Emergency Provider Emergency Medicine; PCP Family Medicine; Visit Provider Internal Medicine Cardiovascular Disease | DX: R41.0 Disorientation, unspecified (principal); I10 Essential (primary) hypertension; E78.5 Hyperlipidemia, unspecified | CPT/HCPCS: 93010 ==

== ENCOUNTER → 2024-01-17 16:58 | Outpatient (BNV) | payer MEDICARE, OTHER, SELFPAY | PROVIDERS: Admitting Provider Student in an Organized Health Care Education/Training Program; Emergency Provider Emergency Medicine; PCP Family Medicine; Visit Provider Student in an Organized Health Care Education/Training Program | DX: G92.8 Other toxic encephalopathy (principal); E87.0 Hyperosmolality and hypernatremia; N39.0 Urinary tract infection, site not specified; Z79.899 Other long term (current) drug therapy | CPT/HCPCS: 99222; 99232; 99239 ==

== ENCOUNTER 2024-02-23 09:06 | Outpatient (REF) | payer MEDICARE, OTHER, SELFPAY ==
--- NOTE | ~2024-02-23 | MM_ITS ---
EXAMINATION: BONE DENSITOMETRY CLINICAL INDICATION: Age-related osteoporosis without current pathological fracture. COMPARISON: This is the patient's baseline examination. TECHNIQUE: Using a iLike DXA System (software version: 13.1) manufactured by [employer], dual-energy x-ray absorptiometry was performed of the lumbar spine and left hip. The images are of good technical quality. Summary results are attached. FINDINGS: LEFT FEMUR, NECK: BMD 0.451 g/cm2, Z-score -2.6, T-score -4.2, osteoporosis. LEFT FEMUR, TOTAL: BMD 0.448 g/cm2, Z-score -3.1, T-score -4.4, osteoporosis. AP SPINE L1-L4 (excluding L2 and L3): The data of L1-L4 has been changed to exclude the L2 and L3 vertebral bodies, because metallic hardware at these levels may cause overestimation of lumbar spine density. BMD 1.454 g/cm2, Z-score 3.7, T-score 2.4, normal. IDENTIFIED RISK FACTORS: Menopause, hysterectomy, bilateral oophorectomy, parental hip fracture, height loss, history of fracture (adult), osteoporosis. HISTORY OF FRACTURE: Other. MEDICATIONS: Calcium supplements or multivitamin, vitamin D, ERT/SERMS, Prolia. MM/XR DEXA axial skeleton IMPRESSION: 1. DIAGNOSIS: Osteoporosis based on the lowest T-score value of -4.4 in the total femur applying World Health Organization criteria. 2. 10-YEAR FRACTURE RISK PREDICTION, FRAX: According to the guidelines, FRAX calculation should only be performed on patients in the osteopenia bone density category. Therefore, FRAX was not performed on this patient. 3. Treatment Recommendations: NOF guidelines recommend consideration for treatment in postmenopausal women and men age 50 and older presenting with the following: -A hip or vertebral (clinical or morphometric) fracture. -T-score less than or equal to -2.5 at the femoral neck or spine after appropriate evaluation to exclude secondary causes. -Low bone mass at the hip or spine and a 10-year fracture probability by FRAX of greater than or equal to 3% for hip fracture or greater than or equal to 20% for major osteoporotic fracture based on the [place] adapted WHO algorithm. 4. Other Recommendations: All treatment decisions require clinical judgment and consideration of individual patient factors, including patient preferences, comorbidities, previous drug use, risk factors not captured in the FRAX model (e.g. frailty, falls, vitamin D deficiency, increased bone turnover, interval significant decline in bone density) and possible under or overestimation of fracture risk by FRAX. Additional medical evaluation for secondary cause of low bone mineral density may be appropriate. FUTURE SCAN RECOMMENDATION: People with diagnosed cases of osteoporosis or at high risk for fracture should have regular bone mineral density tests. For patients eligible for Medicare, routine testing is allowed once every 2 years. The testing frequency can be increased to one year for patients who have rapidly progressing disease, those who are receiving or discontinuing medical therapy to restore bone mass, or have additional risk factors.
== END 2024-02-23 09:07 | disposition home or self-care (01) ==
LOC: HO.MAMMO 09:06
PROVIDERS: PCP Family Medicine; Visit Provider Family Medicine
DX: M81.0 Age-related osteoporosis without current pathological fracture (principal)
CPT/HCPCS: 77080